=== PATIENT | female | born 1980 | race Caucasian/White ===

== ENCOUNTER → 2024-05-19 07:36 | Outpatient (REF) | payer OTHER, SELFPAY | LOC: HWRAD 07:36 | PROVIDERS: ATTENDING PHYSICIAN Family Medicine | DX: R51.9 Headache, unspecified (principal) | CPT/HCPCS: 70450 ==

== ENCOUNTER → 2025-02-05 12:59 | Outpatient (REF) | payer OTHER, SELFPAY | LOC: RAD 12:59 | PROVIDERS: ATTENDING PHYSICIAN Family Medicine | DX: R05.1 Acute cough (principal) | CPT/HCPCS: 71046 ==